=== PATIENT | male | born 1940 | race Caucasian/White ===

== ENCOUNTER 2022-08-27 06:16 | Day surgery (SDC) | payer MEDICARE ==
[2022-08-24 10:20] VITALS: BMI 26.0
[2022-08-27 07:58] LABS: Anion Gap 12 mmol/L (10-20); BUN (Urea Nitrogen) 12 mg/dL (8.4-25.7); Calc. Creatinine Clearance 57 mL/min (70-130); Calcium 8.3 mg/dL (7.8-10.44); Carbon Dioxide 25 mmol/L (23-31); Chloride 106 mmol/L (98-107); Estimated GFR 60; Glucose 99 mg/dL (83-110); Potassium 3.9 mmol/L (3.5-5.1); Sodium 139 mmol/L (136-145)
[2022-08-27 08:08] LABS: Hemoglobin 10.5 g/dL (14.0-18.0); Mean Corpuscular HGB CONC 28.8 g/dL (32.0-36.0); Mean Corpuscular Hemoglobin 24.8 pg (27.0-31.0); Mean Corpuscular Volume 86.2 fl (78.0-98.0); Mean Platelet Volume 8.2 fL (7.4-10.4); Platelet Count 209 thou/uL (130-400); Red Blood Cell (RBC) Count 4.21 mill/uL (4.70-6.10); White Blood Cell (WBC) Count 8.4 thou/uL (4.8-10.8)
[2022-08-27 08:09] LABS: #Eosinphils 0.3 thou/uL (0.0-0.7); #Lymphocytes 2.8 thou/uL (1.20-3.40); #Monocytes 0.9 thou/uL (0.11-0.59); #Neutrophils 4.4 thou/uL (1.40-6.50); %Basophils 0.1 % (0.0-1.0); %Eosinophils 3.5 % (0.0-10.0); %Lymphocytes 33.2 % (21.0-51.0); %Monocytes 10.7 % (0.0-10.0); %Neutrophils 52.4 % (42.0-75.0)
[2022-08-27 08:33] LABS: Hypochromia SLIGHT = 6-15 cells (100X) (0-5/hpf); MDiff Complete? YES; Ovalocytes SLIGHT = 2-5 cells (100X) (0-1/hpf); Platelet Morphology Comment Appears Adequate; Polychromasia SLIGHT = 2-3 cells (100X) (0-2/hpf)
[2022-08-27] MEDS ORDERED: PROPOFOL 20 ML ONE (08:33)
== END 2022-08-27 10:03 | disposition home or self-care (01) ==
LOC: SDC 06:16
PROVIDERS: ATTEND Internal Medicine Cardiovascular Disease
PROC: B246ZZ4 Ultrasonography of Right and Left Heart, Transesophageal (ICD-10-PCS; principal; 2022-08-27)
PROC: 5A2204Z Restoration of Cardiac Rhythm, Single (ICD-10-PCS; 2022-08-27)
DX: I48.3 Typical atrial flutter (principal); I48.91 Unspecified atrial fibrillation; I08.3 Combined rheumatic disorders of mitral, aortic and tricuspid valves; I70.0 Atherosclerosis of aorta; I45.2 Bifascicular block; E78.00 Pure hypercholesterolemia, unspecified; I73.9 Peripheral vascular disease, unspecified; E78.5 Hyperlipidemia, unspecified; Z87.891 Personal history of nicotine dependence; Z79.01 Long term (current) use of anticoagulants; Z79.82 Long term (current) use of aspirin; Z79.899 Other long term (current) drug therapy; Z95.5 Presence of coronary angioplasty implant and graft
CPT/HCPCS: 36415; 80048; 85025; 92960; 93005; 93010; 93312; J2704

== ENCOUNTER 2023-01-30 15:01 | Observation (INO) | payer MEDICARE ==
[~2023-01-30 15:01] MED LIST: Iopamidol-370 76% 500 ML MDV (1 ML CHARGE) ONE
[2023-01-30] MEDS ORDERED: Ketorolac Tromethamine 30 MG/ML VIAL ONE (15:46)
[2023-01-30 15:53] LABS: #Basophils 0.1 thou/uL (0.0-0.2); #Eosinphils 0.1 thou/uL (0.0-0.7); #Lymphocytes 2.4 thou/uL (1.20-3.40); #Monocytes 1.1 thou/uL (0.11-0.59); #Neutrophils 12.1 thou/uL (1.40-6.50); %Basophils 0.5 % (0.0-1.0); %Eosinophils 0.4 % (0.0-10.0); %Lymphocytes 15.4 % (21.0-51.0); %Monocytes 7.1 % (0.0-10.0); %Neutrophils 76.7 % (42.0-75.0); Hemoglobin 12.5 g/dL (14.0-18.0); Mean Corpuscular HGB CONC 32.7 g/dL (32.0-36.0); Mean Corpuscular Hemoglobin 30.4 pg (27.0-31.0); Mean Corpuscular Volume 93.1 fl (78.0-98.0); Platelet Count 226 10x3/uL (130-400); RBC Distribution Width 15.7 % (11.5-14.5); White Blood Cell (WBC) Count 15.8 10x3/uL (4.8-10.8)
[2023-01-30 16:14] LABS: ALT (SGPT) 19 U/L (8-55); AST (SGOT) 20 U/L (5-34); Albumin 4.2 g/dL (3.4-4.8); Alkaline Phosphatase 68 U/L (40-110); Anion Gap 13 mmol/L (10-20); BUN (Urea Nitrogen) 13 mg/dL (8.4-25.7); Bilirubin, Total 0.6 mg/dL (0.2-1.2); Calc. Creatinine Clearance 0 mL/min (70-130); Calcium 9.2 mg/dL (7.8-10.44); Carbon Dioxide 25 mmol/L (23-31); Chloride 104 mmol/L (98-107); Estimated GFR 69; Globulin 3.6 g/dL (2.4-3.5); Glucose 108 mg/dL (83-110); Lipase 24 U/L (8-78); Potassium 3.6 mmol/L (3.5-5.1); Protein, Total 7.8 g/dL (5.8-8.1); Sodium 138 mmol/L (136-145)
[2023-01-30] MEDS ORDERED: Piperacillin/Tazobactam 3.375 GM VIAL ONE (17:05)
[2023-01-30] MEDS ORDERED: EPINEPHrine 1 MG/ML AMP ONE (18:07)
[2023-01-30] MEDS ORDERED: Bupivacaine 0.25% HCL 30 ML VIAL ONE (18:07)
[2023-01-30] MEDS ORDERED: fentaNYL PF 100 MCG/2 ML SYRINGE ONE (18:28)
[2023-01-30] MEDS ORDERED: PROPOFOL 200 MG/20 ML VIAL ONE (18:41)
[2023-01-30] MEDS ORDERED: Succinylcholine Chloride 100 MG/5 ML SYRINGE FS ONE (18:41)
[2023-01-30] MEDS ORDERED: Ondansetron PF 4 MG/2 ML Vial ONE (18:41)
[2023-01-30] MEDS ORDERED: Lidocaine 1% PF 5 ML VIAL ONE (18:41)
[2023-01-30] MEDS ORDERED: Dexamethasone 20 MG/5 ML VIAL ONE (18:41)
[2023-01-30] MEDS ORDERED: Rocuronium Bromide 10 MG/ML (10ML VIAL) ONE (18:41)
[2023-01-30 18:49] LABS: Bacteria/HPF None Seen HPF (None Seen); Bilirubin Negative (Negative); Blood, Urine Trace (Negative); Clarity Clear (Clear); Glucose, Urine (Dipstick) Normal (Negative); Ketone, Urine Negative (Negative); Leukocyte Negative Leu/uL (Negative); Nitrite Negative (Negative); Protein, Urine (Dipstick) Negative (Neg-Trace); Specific Gravity, Urine 1.023 (1.002-1.036); Squamous Epithelial 0-3 HPF (0-3); Urobilinogen Normal mg/dL (Less than 2); WBC/HPF 0-3 HPF (0-3); pH, Urine 6.5 (5.0-9.0)
[2023-01-30] MEDS ORDERED: SUGAMMADEX SODIUM 200 MG/2 ML VIAL ONE (19:24)
[2023-01-30] MEDS ORDERED: Ondansetron HCl/PF 4 MG/2 ML Vial IVP PRN (19:43)
[2023-01-30] MEDS ORDERED: Promethazine HCl 25 MG/ML VIAL IM PRN ×2 (19:43→19:53)
[2023-01-30] MEDS ORDERED: Ondansetron PF 4 MG/2 ML Vial IVP PRN (19:53)
[2023-01-30] MEDS ORDERED: Dextrose 50% Abboject 50 ML SYRINGE SLOW IVP PRN (19:53)
[2023-01-30] MEDS ORDERED: Morphine 4 MG/ML VIAL SLOW IVP PRN (19:53)
[2023-01-30] MEDS ORDERED: Dextrose 5% in Water 1,000 ML IV PRN (19:53)
[2023-01-30] MEDS ORDERED: Acetaminophen 325 MG TAB PO PRN (19:53)
[2023-01-30] MEDS ORDERED: traMADol HCl 50 MG TAB PO PRN (19:53)
[2023-01-30] MEDS ORDERED: hydrALAZINE 20 MG/ML VIAL SLOW IVP PRN (19:53)
[2023-01-30] MEDS ORDERED: Sodium Chloride 0.9% 1,000 ML IV SCH (19:53)
[2023-01-30] MEDS ORDERED: Ipratropium/Albuterol 3 ML NEB NEB PRN (19:53)
[2023-01-30] MEDS ORDERED: Amiodarone 200 MG TAB PO SCH (21:00)
[2023-01-30] MEDS: Famotidine 20 MG TAB PO SCH (21:44)
[2023-01-30] MEDS: Famotidine/PF 20 mg/2ml Vial SLOW IVP SCH (21:45)
[2023-01-30] MEDS: cefOXitin 2 GM in Sodium Chloride 0.9% 100 ML IVPB SCH (22:27)
[2023-01-30 22:47] VITALS: BMI 24.8
[2023-01-31] MEDS: cefOXitin 2 GM in Sodium Chloride 0.9% 100 ML IVPB SCH (05:05)
[2023-01-31 07:15] LABS: Anion Gap 10 mmol/L (10-20); BUN (Urea Nitrogen) 11 mg/dL (8.4-25.7); Calc. Creatinine Clearance 52 mL/min (70-130); Calcium 8.4 mg/dL (7.8-10.44); Carbon Dioxide 23 mmol/L (23-31); Chloride 108 mmol/L (98-107); Estimated GFR 57; Glucose 132 mg/dL (83-110); Sodium 137 mmol/L (136-145)
[2023-01-31 07:20] LABS: #Lymphocytes 1.4 thou/uL (1.20-3.40); #Neutrophils 12.3 thou/uL (1.40-6.50); %Basophils 0.1 % (0.0-1.0); %Eosinophils 0.1 % (0.0-10.0); %Lymphocytes 9.5 % (21.0-51.0); %Monocytes 6.7 % (0.0-10.0); %Neutrophils 83.6 % (42.0-75.0); Hemoglobin 11.3 g/dL (14.0-18.0); Mean Corpuscular HGB CONC 33.1 g/dL (32.0-36.0); Mean Corpuscular Hemoglobin 31.2 pg (27.0-31.0); Mean Corpuscular Volume 94.3 fl (78.0-98.0); Mean Platelet Volume 8.5 fL (7.4-10.4); Platelet Count 189 10x3/uL (130-400); RBC Distribution Width 15.7 % (11.5-14.5); Red Blood Cell (RBC) Count 3.63 mill/uL (4.70-6.10); White Blood Cell (WBC) Count 14.8 10x3/uL (4.8-10.8)
[2023-01-31 08:19] VITALS: BP 138/56; TEMP 97.9
[2023-01-31] MEDS: Famotidine/PF 20 mg/2ml Vial SLOW IVP SCH (08:40)
[2023-01-31] MEDS: Famotidine 20 MG TAB PO SCH (08:40)
[2023-01-31] MEDS ORDERED: Amiodarone 200 MG TAB PO SCH (09:00)
[2023-01-31] MEDS ORDERED: Tamsulosin HCl 0.4 MG CAP PO SCH (09:00)
== END 2023-01-31 11:11 | disposition home or self-care (01) ==
LOC: ERS 15:01 → T4-A 21:31
PROVIDERS: ADMIT Surgery; ATTEND Surgery
PROC: 0DTJ4ZZ Resection of Appendix, Percutaneous Endoscopic Approach (ICD-10-PCS; principal; 2023-01-30)
DX: K35.80 Unspecified acute appendicitis (principal); I48.20 Chronic atrial fibrillation, unspecified; I10 Essential (primary) hypertension; E78.5 Hyperlipidemia, unspecified; I71.43 Infrarenal abdominal aortic aneurysm, without rupture; N20.0 Calculus of kidney; Z87.891 Personal history of nicotine dependence; Z79.01 Long term (current) use of anticoagulants; Z79.899 Other long term (current) drug therapy; Z95.5 Presence of coronary angioplasty implant and graft; Z96.643 Presence of artificial hip joint, bilateral
CPT/HCPCS: 44970; 74177; 80048; 80053; 83690; 85025 ×2; 96365; 96366; 96375 ×3; 96376; 99285; C1776; G0378 ×2; 36415; 81003; 81015; 88304; A4649; J0171; J0694; J1100; J1885; J2270; J2405; J2543; J2704; J3490; Q9967; S0020; S0028

== ENCOUNTER 2023-08-19 10:09 | Outpatient (CLI) | payer MEDICARE ==
[~2023-08-19 10:09] MED LIST changes: +Iopamidol 370 76% 100 ML VIAL ONE; -Iopamidol-370 76% 500 ML MDV (1 ML CHARGE) ONE
== END 2023-08-19 10:10 | disposition home or self-care (01) ==
LOC: BICCT 10:09
PROVIDERS: ATTEND Urology
DX: R31.0 Gross hematuria (principal); K57.30 Diverticulosis of large intestine without perforation or abscess without bleeding; N28.1 Cyst of kidney, acquired; N20.0 Calculus of kidney; I71.40 Abdominal aortic aneurysm, without rupture, unspecified; I70.0 Atherosclerosis of aorta; I70.8 Atherosclerosis of other arteries; R91.1 Solitary pulmonary nodule
CPT/HCPCS: 74178; 82565; Q9967